=== PATIENT | male | born 1970 | race Caucasian/White ===

== ENCOUNTER 2019-06-04 15:17 | Emergency (ER) | payer OTHER ==
[~2019-06-04] VITALS: Ht 193 cm; Wt 88.2 kg
[2019-06-04] MEDS ORDERED: METO37.5 PO (15:36)
[2019-06-04 15:57] LABS: BASO # 0.1 10^3/uL (0.0-0.2); BASO % 0.8 % (0.0-1.0); EOS # 0.1 10^3/uL (0.0-0.5); EOS % 1.5 % (0.0-3.0); HEMATOCRIT 45.2 % (42.0-52.0); HEMOGLOBIN 15.9 g/dl (13.5-17.5); LYMPH # 2.3 10^3/uL (1.5-5.0); LYMPH % 24.5 % (24.0-44.0); MEAN CORPUSCULAR HEMOGLOBIN 31.1 pg (27.0-33.0); MEAN CORPUSCULAR HGB CONC 35.2 g/dl (32.0-36.5); MEAN CORPUSCULAR VOLUME 88.5 fl (80.0-96.0); MONO # 0.8 10^3/uL (0.0-0.8); MONO % 8.2 % (0.0-5.0); NEUTROPHILS # 5.9 10^3/uL (1.5-8.5); NEUTROPHILS % 64.8 % (36.0-66.0); PLATELET COUNT, AUTOMATED 289 10^3/uL (150-450); RED BLOOD COUNT 5.11 10^6/uL (4.30-6.10); WHITE BLOOD COUNT 9.2 10^3/uL (4.0-10.0)
[2019-06-04] MEDS ORDERED: ISOVUE-370 76% 100ML VIAL (Q9967) As Ordered ONE (16:16)
[2019-06-04 16:36] LABS: ALBUMIN 3.6 GM/DL (3.2-5.2); BILIRUBIN,DIRECT 0.4 MG/DL (0.0-0.2); BILIRUBIN,TOTAL 2.6 MG/DL (0.2-1.0); CK-MB VALUE MASS 1.5 NG/ML (<3.6); FREE T4 1.03 NG/DL (0.76-1.46); MB/CK RELATIVE INDEX 1.12 (< OR =4); THYROID STIMULATING HORMONE 0.849 uIU/ML (0.358-3.740); TOTAL PROTEIN 6.6 GM/DL (6.4-8.2); TROPONIN I 0.04 NG/ML (< 0.10)
[2019-06-04] MEDS ORDERED: ACETAMINOPHEN 500 MG TAB PO ONE (16:45)
--- NOTE | 2019-06-04 17:13 | REP ---
CHEST: Single view. There is no evidence of acute infiltrate. No pleural effusion is seen. The heart is normal in size. The mediastinal silhouette is unremarkable. The visualized osseous structures are intact. IMPRESSION: No acute pulmonary disease. Electronically Signed by Armani Norris MD 06/04/2019 06:09 P
[2019-06-04 18:03] VITALS: BP 119/85
--- NOTE | 2019-06-04 19:16 | REP ---
CT pulmonary angiogram: With IV contrast. History: Rule out pulmonary embolus. Comparison studies: No comparison study. Contrast dose: 100 ML of Isovue [address] technique: Helical scanning is acquired and overlapping 1.5 mm and contiguous 3 mm axial images are reformatted. In addition, maximum intensity projection and multiplanar re-formation images are generated in sagittal and coronal imaging projections. CT pulmonary angiographic findings: There is good opacification of the pulmonary arterial tree. No filling defect or vessel cutoff is seen. There is no CT evidence of pulmonary embolism. Thoracic aorta shows no evidence of aneurysm or dissection. There is some aortic tortuosity mild in degree. No pleural or pericardial effusion is seen. There is no evidence of hilar or mediastinal mass or adenopathy. No adrenal lesion is seen. The visualized upper abdominal structures are unremarkable. No pulmonary nodule or mass lesion is seen. No infiltrate is noted. Bone window settings show no bony destructive lesion. Impression: No CT evidence of pulmonary embolus. Negative CT pulmonary angiogram. Electronically Signed by Srinivas Cheney MD 06/04/2019 09:18 P
--- NOTE | 2019-06-04 20:02 | ECGEPIP ---
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
== END 2019-06-04 18:07 | disposition home or self-care (01) ==
LOC: M ED 15:17
DX: R07.89 Other chest pain (principal); J45.998 Other asthma; Z79.899 Other long term (current) drug therapy
CPT/HCPCS: 36415; 71045; 71275; 80047; 80076; 82550; 82553; 83690; 83880; 84439; 84443; 84484; 85025; 85379; 93005; 93041; 94760; 99285; Q9967

== ENCOUNTER → 2019-10-14 | Outpatient (CLI) | payer OTHER ==
[~2019-10-14] MED LIST: ADV250INH INH; CAPS25CR TOP; LIDO5TD TOP; METO37.5 PO; TOPR25TA PO
== END ==
LOC: M LABSMTC 08:58
PROVIDERS: ATTEND Anesthesiology
DX: Z01.812 Encounter for preprocedural laboratory examination (principal); Z11.59 Encounter for screening for other viral diseases

== ENCOUNTER 2019-10-17 08:02 | Day surgery (SDC) | payer OTHER ==
[~2019-10-17] VITALS: Ht 188 cm; Wt 87.1 kg
[~2019-10-17 08:02] MED LIST changes: +LR 1,000 ML IV ONE; +ceFAZolin SOD 2 GM in IV 1 EA IV ONE
[2019-10-17] MEDS ORDERED: MIDAZOLAM INJ 2MG/2ML VIAL (J2250 PER 1MG) As Ordered ONE (08:12)
[2019-10-17] MEDS ORDERED: fentaNYL 250 MCG/5 ML INJECTION (J3010) As Ordered ONE (08:12)
[2019-10-17] MEDS ORDERED: LIDOCAINE 2% 100MG/5ML SDV (FOR ANES.) As Ordered ONE (08:12)
[2019-10-17] MEDS ORDERED: propofoL 200 MG/20 ML VIAL As Ordered ONE (08:12)
[2019-10-17] MEDS ORDERED: ROCURONIUM BROMIDE 50 MG/5 ML VIAL As Ordered ONE ×2 (08:12→11:38)
[2019-10-17] MEDS ORDERED: BUPIVACAINE LIPOSOME/PF 1.3% 20ML VIAL (13.3MG/ML)(EXPAREL)(C9290 PER1MG) As Ordered ONE (10:05)
[2019-10-17] MEDS ORDERED: BUPIVACAINE HCL 0.25% 10ML VIAL As Ordered ONE (10:05)
[2019-10-17] MEDS ORDERED: LIDOCAINE 1% SDV 30ML VIAL As Ordered ONE (10:05)
[2019-10-17] MEDS ORDERED: BUPIVACAINE HCL 0.25% 30ML VIAL As Ordered ONE (10:05)
[2019-10-17] MEDS ORDERED: dexameTHASONE 4 MG/ML 1ML VIAL (J1100 PER 1MG) As Ordered ONE (10:35)
[2019-10-17] MEDS ORDERED: METOCLOPRAMIDE INJ 10MG/2ML VIAL (J2765 PER 1) As Ordered ONE (10:44)
[2019-10-17] MEDS ORDERED: ONDANSETRON 4MG/2ML VIAL As Ordered ONE (10:44)
[2019-10-17] MEDS ORDERED: ACETAMINOPHEN 1000MG 100ML IV BTL (OFIRMEV) (J0131 PER 10MG) As Ordered ONE (10:44)
[2019-10-17] MEDS ORDERED: KETOROLAC 60 MG/2 ML VIAL As Ordered ONE (10:44)
[2019-10-17] MEDS ORDERED: NORCO, ANEXSIA 5/325MG TABLET (HYDROcodone/ACETAMINOPHEN) PO PRN (12:15)
[2019-10-17] MEDS ORDERED: ONDANSETRON 4MG/2ML VIAL IV PRN ×2 (12:15→12:30)
[2019-10-17] MEDS ORDERED: KETOROLAC 30 MG/ML 1ML VIAL IV PRN (12:15)
[2019-10-17] MEDS ORDERED: oxyCODONE 5MG TAB PO PRN (12:30)
[2019-10-17] MEDS ORDERED: fentaNYL 100 MCG/2 ML INJECTION (J3010) IV PRN (12:30)
[2019-10-17] MEDS ORDERED: LR 1,000 ML IV SCH (12:30)
--- NOTE | 2019-10-17 12:50 | ROOPDOC ---
[facility] Report Of Operation Report of Operation DATE OF PROCEDURE: 10/17/19 PREPROCEDURE DIAGNOSES: left inguinal hernia. POSTPROCEDURE DIAGNOSES: left indirect inguinal hernia. PROCEDURE: Robotic Assisted Laparoscopic repair of left inguinal hernia (rTAPP). SURGEON: Moriah Anderson MD SALOONKEEPER: Virginia Martinez NP ANESTHESIA: General Anesthesia. ESTIMATED BLOOD LOSS: Approximately 10 mL. COMPLICATIONS: none. REMARKS: indirect inguinal hernia, redundant sac, moderate sized cord lipoma reduced, use 15x10 cm parietex progrip mesh. PROCEDURE NOTE: . DESCRIPTION OF PROCEDURE: . MORIAH ANDERSON MD October 17, 2019 12:50
[2019-10-17 14:25] VITALS: BP 122/83
== END 2019-10-17 14:30 | disposition home or self-care (01) ==
LOC: M SDC 08:02
PROVIDERS: ATTEND Surgery
DX: K40.90 Unilateral inguinal hernia, without obstruction or gangrene, not specified as recurrent (principal); G43.909 Migraine, unspecified, not intractable, without status migrainosus; J45.909 Unspecified asthma, uncomplicated; I71.2 Thoracic aortic aneurysm, without rupture; Z79.899 Other long term (current) drug therapy; Z79.51 Long term (current) use of inhaled steroids
CPT/HCPCS: 49650; C1781; J0131; J0690; J1100; J1885; J2250; J2405; J2765; J3010